=== PATIENT | female | born 1965 | race Hispanic/Latino ===

== ENCOUNTER → 2023-08-19 | Outpatient (CLI) | payer BC ==
[~2023-08-19] MED LIST: MECL-160 PO; METF-444 PO; VIT D 2000 UNIT
== END | disposition home or self-care (01) ==
LOC: RAH 13:36
PROVIDERS: ATTEND Internal Medicine
DX: R92.8 Other abnormal and inconclusive findings on diagnostic imaging of breast (principal); R92.30 Dense breasts, unspecified
CPT/HCPCS: 77065

== ENCOUNTER → 2024-08-19 | Outpatient (CLI) | payer BC ==
[~2024-08-19] MED LIST changes: -MECL-160 PO; +MECL-302 PO
--- NOTE | 2024-08-19 08:44 | HMCIMG ---
MAMMO SCREENING BILATERAL HISTORY: Screening mammogram. COMPARISON: 07/22/2023 TECHNIQUE: Bilateral screening mammogram with CAD was performed with craniocaudal and mediolateral oblique projections. FINDINGS: The breasts are extremely dense which lowers the sensitivity of mammogram. Cluster of microcalcifications are seen in the 12:00 of right breast. Stereotactic mammographic core biopsy is recommended for complete evaluation. There is no other evidence of a dominant mass, or suspicious microcalcification. There is no evidence of nipple retraction or skin thickening. IMPRESSION: 1. Cluster of microcalcifications are seen in the 12:00 of right breast. Stereotactic mammographic core biopsy is recommended for complete evaluation. Patient was entered into a reminder system with a target due date for their next mammogram. BI-RADS: CATEGORY 4: SUSPICIOUS ABNORMALITY. BIOPSY SHOULD BE CONSIDERED Recommend monthly self breast exam as well as annual clinical examination. A negative x-ray should not delay biopsy if a dominant or clinically suspicious mass is present, since 8-10% of cancers are not identified by mammography. Dense breasts particularly, may obscure an underlying neoplasm. Some of these may be detected clinically and therefore, clinical examination is an essential part of breast evaluation.
== END | disposition home or self-care (01) ==
LOC: RAH 07:44
PROVIDERS: ATTEND Internal Medicine
DX: Z12.31 Encounter for screening mammogram for malignant neoplasm of breast (principal); R92.30 Dense breasts, unspecified; R92.0 Mammographic microcalcification found on diagnostic imaging of breast
CPT/HCPCS: 77067